=== PATIENT | male | born 1970 | race Caucasian/White ===

== ENCOUNTER 2024-09-09 11:35 | Emergency (ER) | payer OTHER, SELFPAY ==
[2024-09-09 11:36] VITALS: BP 130/71; PULSE 81; RESP 18; TEMP 36.4; O2SAT 100
--- NOTE | 2024-09-09 11:40 | RAD_ITS ---
STUDY: X-RAY - PELVIS AND LEFT HIP REASON FOR EXAM: Male, 54 years old. INJURY TECHNIQUE: 3 views of the pelvis and left hip. COMPARISON: None. FINDINGS: There is a non-specific bowel gas pattern. Normal visualized soft tissue structures. Normal bilateral iliac wings, sacroiliac joints and visualized sacrum. Normal bilateral superior and inferior pubic rami. Normal pubic symphysis. Normal bilateral ischial tuberosities. Normal visualized femoral heads bilaterally. There is mild osteoarthritic spur formation of the acetabular rims bilaterally. There is no demonstrated acute fracture. RAD/HIP, UNI W/ Pelvis 2-3 Views IMPRESSION: Mild degenerative arthrosis of the hip joints bilaterally. No demonstrated acute fracture. Electronically Signed: Jae Bedolla MD at 12:23 EST ,
--- NOTE | 2024-09-09 11:41 | RAD_ITS ---
STUDY: X-RAY - LEFT TIBIA AND FIBULA REASON FOR EXAM: Male, 54 years old. INJURY TECHNIQUE: 3 views of the left tibia and fibula were obtained. COMPARISON: None. FINDINGS: There is a lateral tibial plateau fracture, with mild articular surface depression. There is a complete fracture through the proximal fibular shaft, with 5 mm medial displacement. The soft tissue structures are unremarkable. RAD/Tibia & Fibula 2 Views IMPRESSION: Lateral tibial plateau fracture, with mild articular surface depression. Complete fracture through the proximal fibular shaft, with 5 mm medial displacement. Electronically Signed: Jae Bedolla MD at 12:38 EST ,
--- NOTE | 2024-09-09 11:50 | RAD_ITS ---
STUDY: X-RAY - LEFT KNEE REASON FOR EXAM: Male, 54 years old. INJURY TECHNIQUE: 2 views of the left knee. COMPARISON: None. FINDINGS: Normal visualized distal femur. There is a lateral tibial plateau fracture, with 3 mm articular surface depression. There is a complete fracture through the proximal fibular shaft, with 5 mm medial displacement. Normal medial femorotibial compartment. Normal lateral femorotibial compartment. Normal patellofemoral articulation. There is a small to moderate left knee joint effusion. The soft tissue structures are unremarkable. RAD/Knee 1 or 2 Views IMPRESSION: Lateral tibial plateau fracture, with 3 mm articular surface depression. Complete fracture through the proximal fibular shaft, with 5 mm medial displacement. Small to moderate left knee joint effusion. Electronically Signed: Jae Bedolla MD at 12:36 EST ,
--- NOTE | 2024-09-09 12:59 | EDS_ITS ---
HPI <PAT Lopez - Last Filed: 09/09/24 15:58> History of Present Illness Chief Complaint: Lower Extremity Injury Narrative Narrative: Patient presenting today due to left leg pain after approximately 30 heavy pipes fell onto the back of a truck onto his leg. He reports that this was about 7000 pounds of weight. He reports difficulty putting pressure on his leg due to pain. This happened around 7 AM this morning and he had to drive back from [facility]. He reports an abrasion to his left elbow, he is not sure if his tetanus is up-to-date but is not wanting to updated at this time. He denies any other injury. [facility] <PAT Lopez - Last Filed: 09/09/24 15:58> [facility] Medical History Myocardial infarct Allergy/AdvReac Type Severity Reaction Status Date / Time No Known Allergies Allergy Verified 09/09/24 11:40 Surgical History History of coronary artery stent placement Social History Smoking Status: Current every day smoker tobacco type: cigarettes ROS <PAT Lopez - Last Filed: 09/09/24 15:58> ROS ED Constitutional Constitutional ED: Denies chills or fever(s) Cardiovascular Cardiovascular: Denies chest pain Respiratory/Chest Respiratory/Chest: Denies dyspnea Musculoskeletal Musculoskeletal: Reports arthralgias Integumentary Denies Abrasions or rash Neurologic Neurologic: Denies paresthesias EXAM <PAT Lopez - Last Filed: 09/09/24 15:58> Physical Exam Const Vital Signs: 09/09/24 11:36 09/09/24 14:36 09/09/24 14:36 Temperature 97.6 F L 98.1 F Temperature Source Oral Pulse Rate 81 84 84 Respiratory Rate 18 16 16 Blood Pressure 130/71 H 130/74 H 130/74 H Blood Pressure Mean 90 92 92 Pulse Ox 100 99 99 Oxygen Delivery Method Room Air Positive well nourished, well developed and no apparent distress General Appearance ED: well developed HEENT Reports normocephalic and head/scalp atraumatic Mouth ED: Yes moist mucous membranes normal Eyes PERRL and EOMs intact bilaterally Neck full ROM and supple Chest Wall inspection of chest normal Resp normal respiratory effort and clear to auscultation bilaterally Cardio regular rate and regular rhythm Back/Spine normal ROM and normal to inspection Extremity Extremity Narrative: Decreased range of motion of the left knee due to pain, swelling to the area of the proximal fibula. Compartments are soft, left PT and DP pulse 2+, good cap refill, sensation intact. No pain or swelling to the left ankle or foot. No pain to the left femur. Neuro oriented x3, CN's II-XII intact bilaterally, moves all extremities, no focal motor deficits and no sensory deficits noted Sensorium / Orientation: awake and alert Psych mental status grossly normal and thought process normal Skin no rashes or lesions noted and no wounds <Dr. Alex Gil DO - Last Filed: 09/09/24 15:23> Physical Exam Const Vital Signs: 09/09/24 11:36 09/09/24 14:36 09/09/24 14:36 Temperature 97.6 F L 98.1 F Temperature Source Oral Pulse Rate 81 84 84 Respiratory Rate 18 16 16 Blood Pressure 130/71 H 130/74 H 130/74 H Blood Pressure Mean 90 92 92 Pulse Ox 100 99 99 Oxygen Delivery Method Room Air [facility] <PAT Lopez - Last Filed: 09/09/24 15:58> [facility] Narrative Medical decision making narrative: Patient presenting today with pain to his left leg after several heavy pipes fell and crushed his leg from the knee down. X-rays were obtained in triage, his tibia/fibula x-ray shows a lateral tibial plateau fracture and a complete fracture through the left fibula with 5 mm medial displacement. I did speak with Dr. Diehl, he recommends placing patient in a knee immobilizer, making him nonweightbearing, giving him crutches, and having him follow-up in the office as an outpatient. I did offer patient analgesia here, he declined. 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 He reports that he will take Tylenol and ibuprofen as needed at home. I did offer to give him Tylenol or ibuprofen here and he declined. RICE instructions were discussed as well as return instructions. Patient discharged home in stable condition. Radiography X-Ray: Read by ED Physician Diagnostic Testing: Clinical Impression(s) from Imaging Studies Hip/Pelvis X-Ray 09/09/24 11:40 IMPRESSION: Mild degenerative arthrosis of the hip joints bilaterally. No demonstrated acute fracture. Electronically Signed: Jae Bedolla MD at 12:23 EST , Tibia/Fibula X-Ray 09/09/24 11:41 IMPRESSION: Lateral tibial plateau fracture, with mild articular surface depression. Complete fracture through the proximal fibular shaft, with 5 mm medial displacement. Electronically Signed: Jae Bedolla MD at 12:38 EST Reading Location ID and State: [facility] / [place] , Service support , Knee X-Ray 09/09/24 11:50 IMPRESSION: Lateral tibial plateau fracture, with 3 mm articular surface depression. Complete fracture through the proximal fibular shaft, with 5 mm medial displacement. Small to moderate left knee joint effusion. Electronically Signed: Jae Bedolla MD at 12:36 EST , <Dr. Alex Gil, DO - Last Filed: 09/09/24 15:23> [facility]DM Radiography Diagnostic Testing: Clinical Impression(s) from Imaging Studies Hip/Pelvis X-Ray 09/09/24 11:40 IMPRESSION: Mild degenerative arthrosis of the hip joints bilaterally. No demonstrated acute fracture. Electronically Signed: Jae Bedolla MD at 12:23 EST , Tibia/Fibula X-Ray 09/09/24 11:41 IMPRESSION: Lateral tibial plateau fracture, with mild articular surface depression. Complete fracture through the proximal fibular shaft, with 5 mm medial displacement. Electronically Signed: Jae Bedolla MD at 12:38 EST , Knee X-Ray 09/09/24 11:50 IMPRESSION: Lateral tibial plateau fracture, with 3 mm articular surface depression. Complete fracture through the proximal fibular shaft, with 5 mm medial displacement. Small to moderate left knee joint effusion. Electronically Signed: Jae Bedolla MD at 12:36 EST , Treatment and Re-Evaluation Narrative: I have personally performed a face to face assessment of the patient and have reviewed the INDIRA Note. I performed a substantive portion of the visit including all aspects of the following. My marcelo findings include: History: Patient presents with pain in his left knee and lower leg that began today. Patient states he was unloading a truck a lot of pipes when some of them fell and hit him on the lateral aspect of his left knee and lower leg. Patient states the pain is constant. 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 Patient states it is better with elevation. Patient denies any paresthesias or weakness. Patient denies any other injuries. Exam: Vital signs are stable. Patient is afebrile. Patient is in no acute distress. Musculoskeletal exam reveals tenderness over the lateral aspect of the left knee and proximal lower leg. There is no bony crepitance or step-off. Range of motion was limited in all motions of the left knee secondary to pain. Sensation was intact to light touch bilaterally in the lower extremities. Pedal pulses are equal bilaterally. Medical Decision Making: Differential diagnosis includes fracture, contusion, and sprain. X-rays of the left knee will be obtained to assess for fracture. X-rays of the left tibia and fibula will be obtained to assess for fracture. X- rays of the left hip will be obtained to assess for fracture. X-rays of the left knee were obtained. There are 2 views. On my independent interpretation, there is a lateral tibial plateau fracture with some mild depression. There is also a proximal fibula fracture with medial displacement of the distal fragment. X-rays of the left tibia and fibula were obtained. There are 3 views. On my independent interpretation, there is a tibial plateau fracture and proximal fibula fracture. Radiologist also interpreted the x-rays and agrees. X-rays of the left hip were obtained. There are 3 views. On my independent interpretation, there is no acute fracture. There are some degenerative changes noted. Radiologist also interpreted the x-rays and agrees. Patient was advised of his findings. Patient was instructed to ice and elevate the left leg. Patient was placed in a knee immobilizer. Case was discussed with Dr. Jean-Baptiste from orthopedics. He will follow-up with the patient. Patient was given crutches. Patient was instructed to remain nonweightbearing. Patient was instructed to return if worse in any way. Patient understood and was agreeable with the plan. All questions were answered. Discharge Plan Triage Chief Complaint: Lower Extremity Injury ED Midlevel Provider: Kary Packer ED Provider: Alex Gil Dx/Rx/DC Orders Clinical Impression: Fracture of left tibial plateau, Fracture of proximal end of fibula Instructions: ED Leg Fracture Stand Alone Forms: ED Work / School Excuse Primary Care Provider: [facility],[place] Referrals: Glen Jean-Baptiste DO [Med Staff - Active Staff] - 3-5 Days NOT,DEFINED [Non-Staff] - Activity Restrictions/Additional Instructions: Follow-up with orthopedics, ice your leg several times a day 15 to 20 minutes at a time for the next few days to help with pain and swelling, keep it elevated. Alternate Tylenol and ibuprofen as needed for your pain. Print Language: [place] Disposition Disposition: Home, Self Care Discharge Date/Time: 09/09/24 15:17
[2024-09-09 14:36] VITALS: BP 130/74; PULSE 84; RESP 16; TEMP 36.7; O2SAT 99
== END 2024-09-09 15:17 | disposition home or self-care (01) ==
PROVIDERS: Emergency Provider Emergency Medicine; Visit Provider Emergency Medicine
DX: S82.122A Displaced fracture of lateral condyle of left tibia, initial encounter for closed fracture (principal); S82.832A Other fracture of upper and lower end of left fibula, initial encounter for closed fracture; W20.8XXA Other cause of strike by thrown, projected or falling object, initial encounter; Y93.89 Activity, other specified; Y99.0 Civilian activity done for income or pay; F17.210 Nicotine dependence, cigarettes, uncomplicated
CPT/HCPCS: 73502; 73560; 73590; 99284